=== PATIENT | female | born 1975 | race Hispanic/Latino ===

== ENCOUNTER 2025-06-16 13:11 | Emergency (ER) | payer SELFPAY ==
[~2025-06-16] VITALS: Ht 160 cm; Wt 76.2 kg
[2025-06-16 14:25] VITALS: TEMP 98.1
[2025-06-16 15:08] LABS: BASOPHILS % 0.6 % (0.0-1.0); EOSINOPHILS % 0.9 % (0.0-6.0); LYMPHOCYTES % 37.5 % (18.0-39.1); MONOCYTES % 7.7 % (4.4-11.3); NEUTROPHILS % 53.0 % (38.7-80.0); RED CELL DISTRIBUTION WIDTH 13.3 % (11.7-14.4)
[2025-06-16 15:10] LABS: LEUKOCYTE ESTERASE ,URINE NEGATIVE (NEGATIVE); PROTEIN,URINE DIPSTICK NEGATIVE (NEGATIVE); URINE UROBILINOGEN 0.2 mg/dL (0.2 - 1)
[2025-06-16 15:17] LABS: EPITHELIAL CELLS,URINE MODERATE /LPF
[2025-06-16 15:31] LABS: EST GLOMERULAR FILTRATION RATE 101.0 ML/MIN (>=60)
[2025-06-16] MEDS: SODIUM CHLORIDE 0.9% 1000ML 1,000 ML IV STA (16:35)
[2025-06-16] MEDS: ONDANSETRON HCL INJ 2MG/ML 2ML 2 MG/ML VIAL IV STA (16:42)
[2025-06-16] MEDS: KETOROLAC TROMETHAMINE 30 MG/ML VIAL IV STA (16:43)
[2025-06-16 17:23] VITALS: PULSE 73; RESP 18
[2025-06-16] MEDS ORDERED: DICYCLOMINE HCL20 MG PO (17:24)
[2025-06-16] MEDS ORDERED: ONDANSETRON ODT4 MG PO (17:24)
[2025-06-16 18:52] VITALS: BP 129/74; PULSE 71; RESP 18; TEMP 98.3; O2SAT 98
[2025-06-16] MEDS ORDERED: IOPAMIDOL 370 MG/ML 100 ML INFUS..BTL INJ ONE (20:14)
== END 2025-06-16 17:35 | disposition home or self-care (01) ==
LOC: ER 15:48
DX: R10.13 Epigastric pain (principal); D25.9 Leiomyoma of uterus, unspecified; R10.20 Pelvic and perineal pain unspecified side; R73.03 Prediabetes; Z85.3 Personal history of malignant neoplasm of breast
CPT/HCPCS: 36415; 74177; 80053; 81001; 83690; 85025; 99284; J1885; J2405; J2470; J7030; Q9967